=== PATIENT | female | born 1975 | race Caucasian/White ===

== ENCOUNTER 2021-07-19 13:45 | Emergency (ER) | payer OTHER, SELFPAY ==
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
[2021-07-19 13:48] VITALS: PULSE 86; RESP 20; TEMP 36.4; O2SAT 97
[2021-07-19] MEDS: IBUPROFEN 600 MG TABLET PO (14:21)
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
== END 2021-07-19 14:34 | disposition home or self-care (01) ==
PROVIDERS: Emergency Provider Emergency Medicine
DX: M54.9 Dorsalgia, unspecified (principal); S00.33XA Contusion of nose, initial encounter; M47.814 Spondylosis without myelopathy or radiculopathy, thoracic region; W22.8XXA Striking against or struck by other objects, initial encounter
CPT/HCPCS: 70486; 71046; 72072; 99284; A9270